=== PATIENT | female | born 1965 | race Caucasian/White ===

== ENCOUNTER 2020-12-08 09:44 | Emergency (ER) | payer MEDICAID, SELFPAY ==
[~2020-12-08] VITALS: Ht 162.6 cm; Wt 69.9 kg
[2020-12-08] MEDS ORDERED: LEVALBUTEROL HFA 45MCG/ACT 15 GM INHALER INH ONE (11:40)
[2020-12-08] MEDS ORDERED: KETOROLAC TROMETHAMINE 10 MG TAB PO ONE (12:15)
[2020-12-08] MEDS ORDERED: guaiFENesin DM LIQ 10ML UD PO ONE (12:15)
[2020-12-08 12:21] LABS: BASO # 0.1 10^3/uL (0.0-0.2); BASO % 0.5 % (0.0-1.0); EOS # 0.3 10^3/uL (0.0-0.5); EOS % 2.1 % (0.0-3.0); HEMATOCRIT 44.7 % (36.0-47.0); HEMOGLOBIN 15.2 g/dl (12.0-15.5); MEAN CORPUSCULAR HEMOGLOBIN 32.3 pg (27.0-33.0); MEAN CORPUSCULAR VOLUME 94.9 fl (80.0-96.0); MONO # 0.6 10^3/uL (0.0-0.8); MONO % 4.7 % (2.0-8.0); NEUTROPHILS # 8.9 10^3/uL (1.5-8.5); NEUTROPHILS % 69.4 % (36.0-66.0); PLATELET COUNT, AUTOMATED 302 10^3/uL (150-450); RED BLOOD COUNT 4.71 10^6/uL (4.00-5.40); WHITE BLOOD COUNT 12.8 10^3/uL (4.0-10.0)
--- NOTE | 2020-12-08 12:21 | REP ---
INDICATION: chest congestion, wheezing three weeks COMPARISON: None. TECHNIQUE: PA/Lateral FINDINGS: Lungs: Clear, no infiltrate. Heart: Normal in size. Mediastinum: Mediastinal silhouette unremarkable. Pleural angles: Unremarkable.. Bones and soft tissues: Unremarkable. IMPRESSION: No acute pulmonary disease. <Electronically signed by Oleg Sinclair > 12/08/20 [id number]
[2020-12-08 12:56] LABS: ALBUMIN 3.8 GM/DL (3.2-5.2); BILIRUBIN,DIRECT 0.2 MG/DL (0.0-0.2); C REACTIVE PROTEIN QUANTITATIV 0.31 MG/DL (0.00-0.30); TOTAL PROTEIN 7.5 GM/DL (6.4-8.2)
[2020-12-08] MEDS ORDERED: MEDR32TA PO (12:56)
[2020-12-08] MEDS ORDERED: MEDR4PAK PO (13:00)
[2020-12-08] MEDS ORDERED: ROBI1LIQ9 PO (13:03)
[2020-12-08] MEDS ORDERED: LEVAINH INH (13:03)
[2020-12-08 13:19] VITALS: BP 134/70
[2020-12-08] MEDS ORDERED: LIDOCAINE 1% MDV 20ML VIAL SC ONE (13:50)
== END 2020-12-08 13:23 | disposition home or self-care (01) ==
LOC: M ED 09:44
DX: J20.9 Acute bronchitis, unspecified (principal); J09.X2 Influenza due to identified novel influenza A virus with other respiratory manifestations; R07.89 Other chest pain; F17.200 Nicotine dependence, unspecified, uncomplicated; Z88.8 Allergy status to other drugs, medicaments and biological substances
CPT/HCPCS: 71046; 80047; 80076; 83690; 85025; 86140; 94640; 99283; U0002